=== PATIENT | female | born 1960 | race African-American/Black ===

== ENCOUNTER 2024-09-20 08:59 | Emergency (ER) | payer SELFPAY ==
[~2024-09-20] VITALS: Ht 167.6 cm; Wt 90.0 kg
[2024-09-20 09:03] VITALS: BP 194/111; PULSE 111; RESP 15; TEMP 37.2; O2SAT 99
[2024-09-20] MEDS ORDERED: LORAZEPAM 2MG/ML INJ IV STA (09:18)
[2024-09-20] MEDS ORDERED: LACTATED RINGERS 1,000 ML IV STA (09:18)
[2024-09-20 10:00] LABS: BASOPHILS % 0.8 % (0.0-2.0); DIFFERENTIAL COMMENT 0; HEMATOCRIT. 41.8 % (36.0-48.0); HEMOGLOBIN. 13.6 g/dL (12.0-16.0); LYMPHOCYTES % 8.5 % (20.0-50.0); MEAN CORPUSCULAR HEMOGLOBIN 29.1 pg (28.0-32.0); MEAN CORPUSCULAR HGB CONC 32.6 g/dL (31.0-37.0); MEAN CORPUSCULAR VOLUME 89.5 fL (81.0-99.0); MEAN PLATELET VOLUME 8.5 fl (7.4-10.4); MONOCYTES % 7.6 % (2.0-8.0); NEUTROPHILS % 82.1 % (40.0-76.0); PLATELET 651 x1000/uL (130-400); RED BLOOD CELL COUNT 4.67 mill/uL (4.2-5.4); RED CELL DISTRIBUTION WIDTH 14.7 % (11.6-14.6); WHITE BLOOD COUNT 18.4 x1000/uL (4.5-11.0)
[2024-09-20 10:09] LABS: PROTHROMBIN TIME 11.4 sec (9.6-11.0)
[2024-09-20 10:21] LABS: CHLORIDE 108 mEq/L (98-107); POTASSIUM 4.8 mEq/L (3.5-5.1); SODIUM 150 mEq/L (136-145)
[2024-09-20 10:22] LABS: CALCIUM 11.2 mg/dL (8.7-10.4); CARBON DIOXIDE 32 mEq/L (21-32)
[2024-09-20 10:27] LABS: CREATININE 1.2 mg/dL (0.6-1.0); GLUCOSE 128 mg/dL (70-105); UREA NITROGEN BLOOD 44 mg/dL (9-23)
[2024-09-20 10:28] LABS: AMMONIA < 17 uMol/L (<32); TROPONIN I HIGH SENSITIVITY 18 ng/L (3.0-34)
[2024-09-20 10:29] LABS: ACETAMINOPHEN < 2 ug/mL (10-30)
[2024-09-20 11:38] LABS: ETHANOL BLOOD < 10 mg/dL (<10)
== END 2024-09-20 10:40 | disposition left against medical advice (07) ==
LOC: ER 09:29
DX: R46.2 Strange and inexplicable behavior (principal); I10 Essential (primary) hypertension; Z79.899 Other long term (current) drug therapy
CPT/HCPCS: 80048; 80307; 80329; 80320; 82140; 83605; 85025; 85610; 84484; 36415; 71045; 70450; 93005; 99285; J7120; G0480